=== PATIENT | female | born 1985 | race Caucasian/White ===

== ENCOUNTER → 2020-04-13 | Outpatient (CLI) | payer BC | LOC: LAB FS 10:23 | PROVIDERS: ATTEND Internal Medicine Gastroenterology | DX: Z01.812 Encounter for preprocedural laboratory examination (principal); Z20.828 Contact with and (suspected) exposure to other viral communicable diseases | CPT/HCPCS: 87635 ==

== ENCOUNTER → 2021-03-01 | Outpatient (CLI) | payer BC | LOC: LAB FS 10:00 | PROVIDERS: ATTEND Family Medicine | DX: Z01.812 Encounter for preprocedural laboratory examination (principal); Z20.822 Contact with and (suspected) exposure to COVID-19 | CPT/HCPCS: 87635 ==

== ENCOUNTER → 2021-08-16 | Outpatient (CLI) | payer BC ==
[~2021-08-16] MED LIST: ALPR0.254 PO; FLUO20CA48 PO; MESA1.2T3 PO; SULF1TAB38 PO; TRAM50TA3 PO
== END ==
LOC: LAB FS 07:40
PROVIDERS: ATTEND Surgery Plastic and Reconstructive Surgery
DX: Z20.822 Contact with and (suspected) exposure to COVID-19 (principal)
CPT/HCPCS: 87636

== ENCOUNTER 2021-08-28 20:58 | Emergency (ER) | payer BC ==
[~2021-08-28] VITALS: Ht 160 cm; Wt 75.4 kg
[2021-08-28] MEDS ORDERED: morphine INJ 10 MG/ML 1ML (SYR OR VIAL) IVP STA (21:32)
[2021-08-28] MEDS ORDERED: SULF1TAB38 PO (21:34)
[2021-08-28] MEDS ORDERED: ALPR0.254 PO (21:34)
[2021-08-28] MEDS ORDERED: MESA1.2T3 PO (21:34)
[2021-08-28] MEDS ORDERED: TRAM50TA3 PO (21:34)
[2021-08-28] MEDS ORDERED: FLUO20CA48 PO (21:34)
[2021-08-28 21:36] LABS: BASOPHILS % (AUTO) 0 % (0-10); EOSINOPHILS # (AUTO) 0.2 10^3/uL (0.0-0.3); EOSINOPHILS % (AUTO) 2 % (0-10); HEMATOCRIT 31 % (35-52); HEMOGLOBIN 10.5 g/dL (11.5-16.0); LYMPHOCYTES # (AUTO) 2.5 10^3/uL (1.0-4.0); LYMPHOCYTES % (AUTO) 22 % (12-44); MEAN CORPUSCULAR HEMOGLOBIN 29 pg (25-34); MEAN CORPUSCULAR HGB CONC 34 g/dL (32-36); MEAN CORPUSCULAR VOLUME 83 fL (80-99); MEAN PLATELET VOLUME 9.7 fL (9.0-12.2); MONOCYTES # (AUTO) 0.8 10^3/uL (0.0-1.0); MONOCYTES % (AUTO) 7 % (0-12); NEUTROPHILS # (AUTO) 7.9 10^3/uL (1.8-7.8); NEUTROPHILS % (AUTO) 69 % (42-75); PLATELET COUNT 326 10^3/uL (130-400); WHITE BLOOD COUNT 11.5 10^3/uL (4.3-11.0)
[2021-08-28] MEDS ORDERED: NS IV 1000 ML 1,000 ML IV SCH (21:45)
[2021-08-28] MEDS ORDERED: ONDANSETRON 4 MG/2 ML (SDV) Z0FRAN IVP ONE (21:45)
[2021-08-28 21:58] LABS: ALBUMIN 4.3 GM/DL (3.2-4.5); BILIRUBIN,TOTAL 0.2 MG/DL (0.1-1.0); CALCIUM 8.5 MG/DL (8.5-10.1); CREATININE SERUM 0.94 MG/DL (0.60-1.30); POTASSIUM 4.3 MMOL/L (3.6-5.0); TOTAL PROTEIN 6.6 GM/DL (6.4-8.2)
--- NOTE | 2021-08-28 21:58 | Diagnostic Imaging Report ---
INDICATION: Abdominal pain. COMPARISON: None. EXAMINATION: Acute abdominal series. FINDINGS: Normal chest. There is no free air. The bowel gas pattern is normal. Osseous structures are normal. IMPRESSION: Negative acute abdominal series. Dictated by: Dictated on workstation # [id number]
--- NOTE | 2021-08-28 22:15 | ED Abdominal Pain ---
General Chief Complaint: Abdominal/GI Problems Stated Complaint: STOMA BAG ISSUES,ABD PAIN,LOWER PAIN Source of Information: Patient Exam Limitations: No Limitations History of Present Illness Date Seen by Provider: Aug 28, 2021 Time Seen by Provider: 21:00 Initial Comments Patient is a 34-year-old female with history of recent ileostomy presents with cramping abdominal pain decreased ostomy output. Pain is cramping intermittent and rated mild to moderate. Patient states she has been taking Imodium for the past 4 days. No nausea vomiting, fever chills or sweats. No other symptoms or complaints. Timing/Duration: 12-24 Hours Severity/Quality: Mild Location: Periumbilical Radiation: Other Activities at Onset: Other Modifying Factors: Improves With Other Associated Symptoms: Other Allergies and Home Medications Allergies Coded Allergies: No Known Drug Allergies (Unverified , 08/28/21) Patient Home Medication List Home Medication List Reviewed: Yes ALPRAZolam (ALPRAZolam) 0.25 Mg Tablet, 0.25 MG PO for ANXIETY, (Reported) Entered as Reported by: ALFONZO MILLER on 08/28/212133 Last Action: New Order Fluoxetine HCl (Fluoxetine HCl) 20 Mg Capsule, 20 MG PO DAILY, (Reported) Entered as Reported by: ALFONZO MILLER on 08/28/212133 Last Action: New Order Mesalamine (Mesalamine) 1.2 Gm Tablet.dr, 1.2 GM PO, (Reported) Entered as Reported by: ALFONZO MILLER on 08/28/212133 Last Action: New Order Sulfamethoxazole/Trimethoprim (Bactrim Ds Tablet) 1 Each Tablet, 1 EACH PO BID, (Reported) Entered as Reported by: ALFONZO MILLER on 08/28/212133 Last Action: New Order Tramadol HCl (Tramadol HCl) 50 Mg Tablet, 50 MG PO for PAIN-MODERATE (5-7), (Reported) Entered as Reported by: ALFONZO MILLER on 08/28/212133 Last Action: New Order Review of Systems Review of Systems Constitutional: see HPI EENTM: See HPI Respiratory: See HPI Cardiovascular: See HPI Gastrointestinal: See HPI Genitourinary: See HPI Musculoskeletal: see HPI Skin: see HPI Psychiatric/Neurological: See HPI Endocrine: See HPI Hematologic/Lymphatic: See HPI All Other Systems Reviewed Negative Unless Noted: Yes Past Vuborzb-Cddypx-Itiwju Hx Patient Social History Tobacco Use?: Yes Physical Exam Vital Signs Capillary Refill : Height/Weight/BMI Height: '" Weight: lbs. oz. kg; BMI Method: General Appearance: WD/WN, no apparent distress Respiratory: lungs clear Cardiovascular: normal peripheral pulses, regular rate, rhythm Gastrointestinal: soft, distended, other (Ileostomy with minimal green soft stool ostomy bag. No periostomy hernia. Minimal tenderness. Stoma coloration pink.) Focused Exam Sepsis Stage: Ruled Out Progress/Results/Core Measures Results/Orders Lab Results Laboratory Tests Test 08/28/21 21:20 Range/Units White Blood Count 11.5 H 4.3-11.0 10^3/uL Red Blood Count 3.67 L 3.80-5.11 10^6/uL Hemoglobin 10.5 L 11.5-16.0 g/dL Hematocrit 31 L 35-52 % Mean Corpuscular Volume 83 80-99 fL Mean Corpuscular Hemoglobin 29 25-34 pg Mean Corpuscular Hemoglobin Concent 34 32-36 g/dL Red Cell Distribution Width 12.4 10.0-14.5 % Platelet Count 326 130-400 10^3/uL Mean Platelet Volume 9.7 9.0-12.2 fL Immature Granulocyte % (Auto) 1 % Neutrophils (%) (Auto) 69 42-75 % Lymphocytes (%) (Auto) 22 12-44 % Monocytes (%) (Auto) 7 0-12 % Eosinophils (%) (Auto) 2 0-10 % Basophils (%) (Auto) 0 0-10 % Neutrophils # (Auto) 7.9 H 1.8-7.8 10^3/uL Lymphocytes # (Auto) 2.5 1.0-4.0 10^3/uL Monocytes # (Auto) 0.8 0.0-1.0 10^3/uL Eosinophils # (Auto) 0.2 0.0-0.3 10^3/uL Basophils # (Auto) 0.0 0.0-0.1 10^3/uL Immature Granulocyte # (Auto) 0.1 0.0-0.1 10^3/uL Sodium Level 134 L 135-145 MMOL/L Potassium Level 4.3 3.6-5.0 MMOL/L Chloride Level 100 98-107 MMOL/L Carbon Dioxide Level 20 L 21-32 MMOL/L Anion Gap 14 5-14 MMOL/L Blood Urea Nitrogen 12 7-18 MG/DL Creatinine 0.94 0.60-1.30 MG/DL Estimat Glomerular Filtration Rate 82 BUN/Creatinine Ratio 13 Glucose Level 99 70-105 MG/DL Calcium Level 8.5 8.5-10.1 MG/DL Corrected Calcium 8.3 L 8.5-10.1 MG/DL Total Bilirubin 0.2 0.1-1.0 MG/DL Aspartate Amino Transf (AST/SGOT) 37 H 5-34 U/L Alanine Aminotransferase (ALT/SGPT) 79 H 0-55 U/L Alkaline Phosphatase 92 40-136 U/L Total Protein 6.6 6.4-8.2 GM/DL Albumin 4.3 3.2-4.5 GM/DL My Orders Orders - NELLY BEST DO Cbc With Automated Diff (08/28/21 21:11) Comprehensive Metabolic Panel (08/28/21 21:11) Urinalysis (08/28/21 21:11) Acute Abd Series (08/28/21 21:11) Morphine Injection (Morphine Injection (08/28/21 21:32) Ondansetron Injection (Zofran Injectio (08/28/21 21:45) Ns Iv 1000 Ml (Sodium Chloride 0.9%) (08/28/21 21:45) Medications Given in ED Current Medications Medications Dose Ordered Sig/Sriram Route Start Time Stop Time Status Last Admin Dose Admin Ondansetron HCl 4 mg ONCE ONCE IVP 08/28/21 21:45 08/28/21 21:46 DC 08/28/21 21:39 4 MG Departure Communication (Admissions) Acute abdominal series: No evidence of bowel obstruction per radiology report. Abdomen soft, nonsurgical. IV fluids pain medication given with provement. Suspect constipation contributing to symptoms. Recommendations supportive care watchful waiting and general surgical follow-up as scheduled. Return cautions reviewed. Patient verbalizes understanding agreement discharge instructions prior to departure. Impression Primary Impression: Abdominal pain Disposition: HOME, SELF-CARE Condition: Stable Departure-Patient Inst. Decision time for Depature: 22:14 Referrals: KP FONTANA MD (PCP/Family) Primary Care Physician Patient Instructions: Abdominal Pain, Adult ED Add. Discharge Instructions: You were evaluated in the emergency department for abdominal pain, likely due to constipation close to the site of the ostomy. Please increase fluids fiber intake mag citrate and follow-up with your surgeon as scheduled. Return to the ED if new or worsening symptoms. All discharge instructions reviewed with patient and/or family. Voiced understanding. NELLY BEST DO Aug 28, 2021 22:15
[2021-08-28 22:28] VITALS: BP 82/51
== END 2021-08-28 22:28 | disposition home or self-care (01) ==
LOC: EDUNIT# 20:58 → ER FS 20:59
DX: R10.33 Periumbilical pain (principal)
CPT/HCPCS: 36415; 74022; 80053; 85025